=== PATIENT | male | born 1990 | race Caucasian/White ===

== ENCOUNTER → 2017-02-01 | Outpatient (CLI) | payer BC ==
--- NOTE | 2017-02-01 14:13 | MAMMOGRAPHY REPORT ---
MALE UNILATERAL LEFT DIGITAL DIAGNOSTIC MAMMOGRAM WITH CAD AND TARGETED LEFT ULTRASOUND: 02/01/2017 CLINICAL HISTORY: The patient reports a nontender left breast lump for several months. He denies any nipple discharge or other complaints. TECHNIQUE: Current study was also evaluated with a Computer Aided Detection (CAD) system. Left CC a nd MLO views were obtained. COMPARISON: No prior exams were available for comparison. BREAST COMPOSITION: The tissue of the left breast is predominantly fatty. FINDINGS: A triangle marker perez the site of the palpable lump in the left upper outer periareolar b reast. There is moderate fibroglandular tissue seen within the left breast, predominantly in the lef t subareolar and lateral breast, consistent with gynecomastia. No suspicious masses or other suspici ous mammographic abnormalities are evident. Targeted ultrasound was performed of the area of the palpable lump pointed out by the patient in the left lateral periareolar breast. There is fibroglandular tissue seen within the left breast, predomi nantly in the left subareolar and periareolar breast as well as left 3:00 breast, consistent with obstetrics gyn ecomastia. No suspicious masses or other suspicious sonographic abnormalities are evident. IMPRESSION: ACR BI-RADS CATEGORY 2: BENIGN, TARGETED ULTRASOUND ACR BI-RADS CATEGORY 2: BENIGN Benign left breast gynecomastia, which corresponds with the palpable lump pointed out by the patient. There is no mammographic or targeted sonographic evidence of malignancy. Recommend clinical follow -up as to a possible underlying cause. The patient has been verbally notified of the results. Approximately 10% of breast cancers are not detected with mammography. A negative mammographic report should not delay biopsy if a clinically suggestive mass is present. Andree Perez M.D. ah/:02/01/2017 08:22:16 Speech Clinician: Verónica ROMERO)(Faw[place]), [facility] letter sent: Normal 1/2 BI-RADS Code: ACR BI-RADS Category 2: Benign Ultrasound BI-RADS: ACR BI-RADS Category 2: Benign
== END | disposition home or self-care (01) ==
LOC: C.MAMM 08:00
PROVIDERS: ATTEND Family Medicine
DX: N63.20 Unspecified lump in the left breast, unspecified quadrant (principal); N62 Hypertrophy of breast

== ENCOUNTER → 2017-06-18 | Day surgery (SDC) | payer OTHER ==
[2017-06-10 08:51] VITALS: Ht 182.9 cm; Wt 77.3 kg
[~2017-06-18] VITALS: Ht 182.9 cm; Wt 77.3 kg
[~2017-06-18] MED LIST: ATROPINE SULFATE 0.1 MG/ML 5ML SYR IV PRN; BUPIVACAINE/EPINEPHRINE 0.5% MPF 1:200,000 30 ML VIAL ONE; DEXAMETHASONE SOD INJ 4 MG/ML VIAL ONE; EpHEDrine SULFATE INJ 50 MG/ML AMP IV PRN; FENTANYL CITRATE INJ 50 MCG/1 ML 2 ML VIAL IV PRN; FENTANYL CITRATE INJ 50 MCG/1 ML 2 ML VIAL ONE; FLUMAZENIL 0.1 MG/1 ML 10 ML VIAL IV ONE; FLUMAZENIL 0.1 MG/1 ML 10 ML VIAL IV PRN; HYDR-5688 PO; HYDROCODONE/ACETAMIN 5/325MG TAB PO PRN; IBUPROFEN 600 MG TAB PO PRN; LACTATED RINGER'S 1000ML 1,000 ML IV SCH; LIDOCAINE HCL 2% 2 ML VIAL (20MG/ML) ONE; MIDAZOLAM HCL 1 MG/ML 2ML VIAL ONE; MULT-506 PO; NALOXONE HCL 0.4 MG/1 ML VIAL/CARP IV PRN; ONDANSETRON INJ 2 MG/ML 2 ML VIAL IV PRN; ONDANSETRON INJ 2 MG/ML 2 ML VIAL ONE; PROMETHAZINE HCL INJ 12.5 MG in SODIUM CHLORIDE 0.9% 50ML 50 ML IV PRN; PROPOFOL IV EMULSION 10 MG/ML 20 ML VIAL IV ONE; SODIUM CHLORIDE 0.9% 1000ML 1,000 ML IV SCH
[2017-06-18] MEDS: CEFAZOLIN 2000MG IV PUSH 15 ML IV SCH ×2 (07:27→07:59)
--- NOTE | 2017-06-18 07:56 | History & Physical Bridge Note ---
H&P Re-Evaluation Bridge Note: I have examined the patient, reviewed the History & Physical and in the interval since the performance of the History & Physical I have noted the following changes of clinical significance: No changes noted
--- NOTE | 2017-06-18 07:59 | Discharge Instructions-SurgCtr ---
Discharge Instructions Date of Service Jun 18, 2017. Visit Reason for Visit: Left Breast Mass Discharge Discharge Diagnosis / Problem: left breast lump Discharge Goals Goal(s): Decrease discomfort, Prevent Disease Progression Activity Recommendations Activity Limitations: resume your previous activity Exercise/Sports Limitations: gradually increase as tolerated May Resume Sexual Activity: when tolerated Shower/Bathe: tomorrow Anesthesia . Post Anesthesia Instructions: If you have had General Anesthesia or IV Sedation: * Do not drive today. * Resume driving when surgeon permits. * Do not make important decisions or sign legal documents today. * Call surgeon for: 1. Temperature elevations greater than 101 degrees F. 2. Uncontrollable pain. 3. Excessive bleeding. 4. Persistent nausea and vomiting. 5. Medication intolerance (nausea, vomiting or rash). * For nausea and vomiting use only clear liquids such as: tea, soda, bouillon until nausea subsides, then gradually increase diet as tolerated. * If you have any concerns or questions, call your surgeon's office. If physician is unavailable and it is an emergency, call 911 or go to the nearest emergency room. . Instructions / Follow-Up Instructions / Follow-Up f/u with dr. hanks in 1-2 weeks. Diet Recommendations Home Diet: resume previous diet Procedures Procedures Performed: left breast lumpectomy Pending Studies Studies pending at discharge: no Medical Emergencies . Who to Call and When: Medical Emergencies: If at any time you feel your situation is an emergency, please call 911 immediately. . Non-Emergent Contact Non-Emergency issues call your: Primary Care Provider, Surgeon . . "Provider Documentation" section prepared by Shun Hanks. .
--- NOTE | 2017-06-18 08:31 | [facility] Post Operative Brief Note ---
Immediate Operative Summary Operative Date Jun 18, 2017. Pre-Operative Diagnosis Left Breast Mass Post-Operative Diagnosis same Procedure(s) Performed Left Breast Lump Excisional Biopsy Surgeon Dr. Hanks [employer] Surgeon(s) Brenda Kathleen, MS3 Estimated Blood Loss 5ml Findings Consistent with Post-Op Diagnosis Specimens A) Left Breast Tissue-out at 0819 Drains None Anesthesia Type MAC Complication(s) none
--- NOTE | 2017-06-18 08:39 | [facility] Operative Report ---
Operative Report Operative Date Jun 18, 2017. Pre-Operative Diagnosis Left Breast Mass Post-Operative Diagnosis same Procedure(s) Performed Left Breast Lump Excisional Biopsy Surgeon Dr. Hanks V[employer] D[employer] Feeder Surgeon(s) Brenda Kathleen, MS3 Estimated Blood Loss 5ml Specimens A) Left Breast Tissue-out at 0819 Drains None Anesthesia Type MAC Complication(s) none Description of Procedure After informed consent was obtained the patient was taken the operating room and placed in supine position with left arm extended. IV sedation was administered by anesthesia and titrated to effect. The left upper chest wall was then sterilely prepped and draped in usual fashion. 1% marcaine with epinephrine was used to infiltrate the soft tissue over the area of the lump. A small curvilinear incision over top of the palpable abnormality was made with a 15 blade scalpel and carried down through the soft tissue using electrocautery. There was no visible discrete mass. I was able to use retractors and electrocautery to make skin flaps and 360. We carried the breast tissue down to the pectoralis muscle. We excised all of this tissue as a core again the way down to the fascia the pectoralis muscle and excised in 1 piece and passed it off to be sent to pathology. I was unable to palpate the entire upper outer quadrant of his breast area and felt no other gross abnormality. Several small bleeding points were controlled using electrocautery. The wound was then thoroughly irrigated and closed in 2 layers using 3-0 Vicryl for deep layers and 4-0 Monocryl for the skin. Benzoin and Steri-Strips were used as a dressing. Patient was awakened and transferred to recovery in stable condition. I attest to the content of the Intraoperative Record and any orders documented therein. Any exceptions are noted below.
--- NOTE | 2017-06-18 08:41 | Medical Student: [facility] ---
Immediate Operative Summary Operative Date Jun 18, 2017. Pre-Operative Diagnosis left breast mass Post-Operative Diagnosis left breast mass Procedure(s) Performed left breast mass excisional biopsy Surgeon Dr. Hanks Digital X [employer] Service Engineer Surgeon(s) Brenda Kathleen, MS3 Estimated Blood Loss 5ml Findings consistent with post-op diagnosis Specimens A: left breast tissue Drains none Anesthesia MAC Complication(s) None Disposition Recovery Room / PACU
--- NOTE | 2017-06-18 08:52 | Anesthesia Progress Nt - [facility] ---
Anesthesia Post Op Note Date & Time Jun 18, 2017 at 08:52 Vital Signs Pain Intensity: 0 Vital Signs Past 12 Hours Date Time Temp Pulse Resp B/P (MAP) Pulse Ox O2 Delivery O2 Flow Rate FiO2 06/18/17 08:34 36.8 69 16 113/82 (92) 99 Room Air 06/18/17 07:13 36.4 50 16 107/69 (82) 100 Room Air Notes Mental Status: alert / awake / arousable, participated in evaluation Pt Amnestic to Procedure: Yes Nausea / Vomiting: adequately controlled Pain: adequately controlled Airway Patency, RR, SpO2: stable & adequate BP & HR: stable & adequate Hydration State: stable & adequate Anesthetic Complications: no major complications apparent
[2017-06-18 09:27] VITALS: BP 108/69; PULSE 50; O2SAT 100
== END | disposition home or self-care (01) ==
LOC: X.SURG 06:55
PROVIDERS: ATTEND Surgery
DX: N60.12 Diffuse cystic mastopathy of left breast (principal); M19.90 Unspecified osteoarthritis, unspecified site; Z80.0 Family history of malignant neoplasm of digestive organs